=== PATIENT | male | born 1960 | race Hispanic/Latino ===

== ENCOUNTER 2018-05-23 01:16 | Inpatient (IN) | payer OTHER ==
[~2018-05-23] VITALS: Ht 160 cm; Wt 82.5 kg
[2018-05-23 02:03] LABS: CREATININE 1.6 mg/dL (0.5-1.5); POTASSIUM 3.4 mmol/L (3.5-5.1)
[2018-05-23] MEDS ORDERED: LEVOFLOXACIN 500 MG/D5W 100 ML 100 ML ONE (02:12)
[2018-05-23] MEDS ORDERED: CEFTRIAXONE SODIUM 1 GM ONE (02:12)
[2018-05-23] MEDS ORDERED: SODIUM CHLORIDE 0.9% 1000ML 1,000 ML IV ONE ×2 (02:12→03:53)
[2018-05-23] MEDS ORDERED: ACETAMINOPHEN 650 MG SUPPOSITORY RC ONE (02:12)
[2018-05-23 02:18] LABS: INR 1.26 (0.85-1.15); PARTIAL THROMBOPLASTIN TIME 25.4 SEC (26.3-35.5); PROTHROMBIN TIME 13.2 SEC (9.6-11.6)
[2018-05-23 02:21] LABS: BASOPHILS % (AUTO) 0.3 % (0.0-5.0); EOSINOPHILS % (AUTO) 0.4 % (0.0-8.0); HEMATOCRIT 33.2 % (42-54); LYMPHOCYTES % (AUTO) 1.8 % (21.0-51.0); MEAN CORPUSCULAR HEMOGLOBIN 26.5 pg (27.0-33.0); MEAN CORPUSCULAR HGB CONC 32.5 g/dL (32.0-36.0); MEAN CORPUSCULAR VOLUME 81.5 fL (79-99); MONOCYTES % (AUTO) 0.2 % (3.0-13.0); NEUTROPHILS % (AUTO) 97.3 % (40.0-77.0); NUCLEATED RED BLOOD CELLS 0.1 % (0.0-0.19); PLATELET COUNT (AUTO) 306 K/uL (130-400); RED BLOOD CELL COUNT(AUTO) 4.08 MIL/uL (4.50-6.20); RED CELL DISTRIBUTION WIDTH 15.6 % (11.0-15.5); WHITE BLOOD COUNT (AUTO) 8.4 K/uL (4.8-10.8)
[2018-05-23 02:21] LABS: APPEARANCE,URINE Turbid (CLEAR); BILIRUBIN,URINE Moderate (NEGATIVE); COLOR,URINE Red (YELLOW); GLUCOSE, URINE (UA) Negative (NEGATIVE); KETONES,URINE 15 mg/dL (NEGATIVE); LEUKOCYTE ESTERASE ,URINE Large (NEGATIVE); NITRATE,URINE Positive (NEGATIVE); PROTEIN,URINE POS 1+ (NEGATIVE)
[2018-05-23 02:23] LABS: UROBILINOGEN,URINE >8.0 mg/dL (0.2-1.0)
[2018-05-23 02:24] LABS: OCCULT BLOOD,URINE LARGE (NEGATIVE)
[2018-05-23 02:25] LABS: RBC,URINE TNTC /HPF (0-1)
[2018-05-23 02:26] LABS: ALBUMIN 2.9 g/dL (3.5-5.0); BILIRUBIN,TOTAL 0.3 mg/dL (0.2-1.0); CREATINE KINASE MB 3.3 ng/mL (0.5-3.6); TOTAL PROTEIN, SERUM 7.1 g/dL (6.0-8.3)
[2018-05-23 02:27] LABS: TROPONIN I 0.81 ng/mL (0.00-0.06)
[2018-05-23 02:28] LABS: BACTERIA,URINE Moderate /HPF (None Seen); WBC,URINE 26-50 /HPF (0-1)
[2018-05-23 02:36] LABS: ALCOHOL, BLOOD < 3 mg/dL (0-10)
[2018-05-23 02:58] LABS: AMMONIA 36 umol/L (11-32)
[2018-05-23 03:00] LABS: AMPHET/METH SCREEN,URINE NEGATIVE (NEGATIVE); BARBITURATE SCREEN, URINE NEGATIVE (NEGATIVE); BENZODIAZEPINES SCREEN,URINE NEGATIVE (NEGATIVE); CANNABINOID SCREEN,URINE NEGATIVE (NEGATIVE); COCAINE SCREEN,URINE NEGATIVE (NEGATIVE); OPIATE SCREEN,URINE NEGATIVE (NEGATIVE); PHENCYCLIDINE SCREEN,URINE NEGATIVE (NEGATIVE)
[2018-05-23] MEDS ORDERED: NITROGLYCERIN 1GM/1 INCH PACKET TD ONE (05:30)
[2018-05-23 08:06] VITALS: BP 131/82
[2018-05-23 10:13] LABS: BASOPHILS % (AUTO) 0.3 % (0.0-5.0); HEMATOCRIT 30.9 % (42-54); MEAN CORPUSCULAR HEMOGLOBIN 26.6 pg (27.0-33.0); MEAN CORPUSCULAR HGB CONC 32.6 g/dL (32.0-36.0); MEAN CORPUSCULAR VOLUME 81.6 fL (79-99); MONOCYTES % (AUTO) 2.2 % (3.0-13.0); NEUTROPHILS % (AUTO) 95.5 % (40.0-77.0); PLATELET COUNT (AUTO) 331 K/uL (130-400); RED BLOOD CELL COUNT(AUTO) 3.79 MIL/uL (4.50-6.20); RED CELL DISTRIBUTION WIDTH 15.9 % (11.0-15.5)
[2018-05-23 10:26] LABS: ALBUMIN 2.7 g/dL (3.5-5.0); BILIRUBIN,TOTAL 0.4 mg/dL (0.2-1.0); CREATININE 1.7 mg/dL (0.5-1.5); POTASSIUM 4.1 mmol/L (3.5-5.1); TOTAL PROTEIN, SERUM 6.9 g/dL (6.0-8.3)
[2018-05-23] MEDS ORDERED: SODIUM CHLORIDE 0.9% 1000ML 1,000 ML IV SCH ×2 (10:30→10:32)
[2018-05-23] MEDS ORDERED: ACETAMINOPHEN 325 MG TAB PO PRN (10:30)
[2018-05-23] MEDS ORDERED: LEVOFLOXACIN 500 MG/D5W 100 ML 100 ML IV SCH (10:30)
[2018-05-23] MEDS ORDERED: VANCOMYCIN PROTOCOL PER PHARMACY IV SCH (10:30)
[2018-05-23 10:31] LABS: INR 1.34 (0.85-1.15)
[2018-05-23] MEDS ORDERED: VANCOMYCIN 1GM+NS 250ML 250 ML IV ONE ×2 (11:00→14:40)
[2018-05-23] MEDS ORDERED: ZOSYN 3.375GM+NS 50ML 50 ML IV SCH (11:30)
[2018-05-23 11:57] VITALS: BP 131/86
[2018-05-23] MEDS: LACTATED RINGERS 1000ML 1,000 ML IV SCH ×2 (12:30→20:47)
[2018-05-23] MEDS: ZOSYN 3.375GM+NS 50ML 50 ML IV SCH ×2 (12:40→20:48)
[2018-05-23 14:51] VITALS: BP 129/82
[2018-05-23] MEDS ORDERED: ATOR40TA71 PO (16:00)
[2018-05-23] MEDS ORDERED: FLUO-126 PO (16:00)
[2018-05-23] MEDS ORDERED: FAMO20TA8 PO (16:00)
[2018-05-23] MEDS ORDERED: LEVE500T19 PO (16:00)
[2018-05-23] MEDS ORDERED: WARF6TAB49 PO (16:00)
[2018-05-23] MEDS ORDERED: ASPI-1026 PO (16:00)
[2018-05-23] MEDS ORDERED: ALLO300T2 PO (16:00)
[2018-05-23 19:40] LABS: APPEARANCE,URINE TURBID (CLEAR); BILIRUBIN,URINE SMALL (NEGATIVE); COLOR,URINE RED (YELLOW); GLUCOSE, URINE (UA) NEGATIVE (NEGATIVE); KETONES,URINE NEGATIVE (NEGATIVE); LEUKOCYTE ESTERASE ,URINE TRACE (NEGATIVE); NITRATE,URINE POSITIVE (NEGATIVE); OCCULT BLOOD,URINE LARGE (NEGATIVE); PROTEIN,URINE >=300 (NEGATIVE)
[2018-05-23 19:51] LABS: RBC,URINE Full Field /HPF (0-1)
[2018-05-23 19:52] VITALS: BP 152/80
[2018-05-23 19:52] LABS: BACTERIA,URINE Few /HPF (None Seen)
[2018-05-23] MEDS: LEVOFLOXACIN 250 MG/D5W 50ML 50 ML IVPB SCH (20:48)
[2018-05-23 23:50] VITALS: BP 130/79
[2018-05-24] MEDS: VANCOMYCIN 500MG+NS 100ML 100 ML IV SCH ×2 (00:16→12:49)
[2018-05-24 04:00] VITALS: BP 129/63
[2018-05-24] MEDS: ZOSYN 3.375GM+NS 50ML 50 ML IV SCH ×3 (05:14→22:18)
[2018-05-24] MEDS: LACTATED RINGERS 1000ML 1,000 ML IV SCH ×3 (05:14→19:12)
[2018-05-24 08:00] VITALS: BP 119/69
[2018-05-24 11:00] VITALS: BP 116/56
[2018-05-24 11:37] LABS: TROPONIN I 1.65 ng/mL (0.00-0.06)
[2018-05-24] MEDS: PANTOPRAZOLE SODIUM 40 MG TABLET.DR PO SCH (12:48)
[2018-05-24] MEDS: ASPIRIN 81MG TAB.CHEW PO SCH (12:49)
[2018-05-24] MEDS: CARVEDILOL 6.25 MG TABLET PO SCH ×2 (12:49→22:23)
[2018-05-24 16:00] VITALS: BP 133/72
[2018-05-24] MEDS: WARFARIN SODIUM 2 MG TAB PO SCH (18:06)
[2018-05-24 19:40] VITALS: BP 144/71
[2018-05-24] MEDS ORDERED: SODIUM CHLORIDE 0.9% 500ML 500 ML IV ONE (21:56)
[2018-05-24] MEDS: LEVOFLOXACIN 250 MG/D5W 50ML 50 ML IVPB SCH (22:17)
[2018-05-24] MEDS: ATORVASTATIN CALCIUM 40 MG TABLET PO SCH (22:18)
[2018-05-24 23:30] VITALS: BP 116/59
[2018-05-25] MEDS: VANCOMYCIN 500MG+NS 100ML 100 ML IV SCH (02:07)
[2018-05-25 03:30] VITALS: BP 130/67
[2018-05-25 04:09] LABS: BASOPHILS % (AUTO) 0.3 % (0.0-5.0); EOSINOPHILS % (AUTO) 3.9 % (0.0-8.0); HEMATOCRIT 24.1 % (42-54); LYMPHOCYTES % (AUTO) 10.9 % (21.0-51.0); MEAN CORPUSCULAR HGB CONC 33.8 g/dL (32.0-36.0); MEAN CORPUSCULAR VOLUME 79.9 fL (79-99); MONOCYTES % (AUTO) 4.5 % (3.0-13.0); NEUTROPHILS % (AUTO) 80.4 % (40.0-77.0); PLATELET COUNT (AUTO) 204 K/uL (130-400); RED BLOOD CELL COUNT(AUTO) 3.02 MIL/uL (4.50-6.20); RED CELL DISTRIBUTION WIDTH 16.1 % (11.0-15.5); WHITE BLOOD COUNT (AUTO) 11.8 K/uL (4.8-10.8)
[2018-05-25 04:12] LABS: INR 1.28 (0.85-1.15); PROTHROMBIN TIME 13.4 SEC (9.6-11.6)
[2018-05-25 04:26] LABS: ALBUMIN 1.9 g/dL (3.5-5.0); BILIRUBIN,TOTAL 0.4 mg/dL (0.2-1.0); CREATININE 0.8 mg/dL (0.5-1.5); POTASSIUM 3.1 mmol/L (3.5-5.1); TOTAL PROTEIN, SERUM 5.3 g/dL (6.0-8.3)
[2018-05-25] MEDS: ZOSYN 3.375GM+NS 50ML 50 ML IV SCH ×2 (05:32→13:17)
[2018-05-25] MEDS: LACTATED RINGERS 1000ML 1,000 ML IV SCH ×2 (05:33→22:16)
[2018-05-25 08:00] VITALS: BP 110/75
[2018-05-25] MEDS ORDERED: POTASSIUM CHLORIDE 20 MEQ ERTAB PO PRN (09:00)
[2018-05-25] MEDS ORDERED: LIDOCAINE HCL-MPF 1% 2ML VIAL IVP PRN (09:00)
[2018-05-25] MEDS ORDERED: POTASSIUM CHLORIDE 20MEQ/100ML 100 ML IV PRN (09:00)
[2018-05-25] MEDS: CARVEDILOL 6.25 MG TABLET PO SCH ×2 (09:40→22:21)
[2018-05-25] MEDS: ASPIRIN 81MG TAB.CHEW PO SCH (09:40)
[2018-05-25] MEDS: PANTOPRAZOLE SODIUM 40 MG TABLET.DR PO SCH (09:40)
[2018-05-25] MEDS ORDERED: VANCOMYCIN 1GM+NS 250ML 250 ML IV SCH (11:30)
[2018-05-25 11:52] VITALS: BP 116/70
[2018-05-25] MEDS: FERROUS FUMARATE 324 MG TABLET PO SCH ×2 (14:42→22:21)
[2018-05-25] MEDS: DOCUSATE SODIUM 100 MG CAP PO SCH (14:42)
[2018-05-25] MEDS: CEFTAZIDIME PENTAHYDRATE 1 GM/VIAL IVP SCH ×2 (14:42→22:23)
[2018-05-25] MEDS: ENOXAPARIN SODIUM 40 MG/0.4 ML SYRINGE SQ SCH (14:43)
[2018-05-25 16:00] VITALS: BP 112/52
[2018-05-25] MEDS: WARFARIN SODIUM 2 MG TAB PO SCH ×2 (16:00)
[2018-05-25] MEDS ORDERED: WARFARIN SODIUM 5 MG TAB PO SCH (16:00)
[2018-05-25] MEDS ORDERED: WARFARIN SODIUM 5 MG TAB ONE (16:04)
[2018-05-25] MEDS: POTASSIUM CHLORIDE 10% ELIXIR 20 MEQ/15 ML UDCUP PO PRN ×2 (16:46→18:20)
[2018-05-25 19:32] VITALS: BP 118/70
[2018-05-25] MEDS: ATORVASTATIN CALCIUM 40 MG TABLET PO SCH (22:21)
[2018-05-25] MEDS: LISINOPRIL 5 MG TABLET PO SCH (22:22)
[2018-05-25] MEDS: VANCOMYCIN 1GM+NS 250ML 250 ML IV SCH (22:23)
[2018-05-26] VITALS (7 sets, daily range): BP systolic 137–167; BP diastolic 70–96
[2018-05-26 06:20] LABS: HEMATOCRIT 24.6 % (42-54); MEAN CORPUSCULAR HGB CONC 32.3 g/dL (32.0-36.0); MEAN CORPUSCULAR VOLUME 80.7 fL (79-99); PLATELET COUNT (AUTO) 186 K/uL (130-400); RED BLOOD CELL COUNT(AUTO) 3.05 MIL/uL (4.50-6.20); WHITE BLOOD COUNT (AUTO) 6.2 K/uL (4.8-10.8)
[2018-05-26] MEDS: CEFTAZIDIME PENTAHYDRATE 1 GM/VIAL IVP SCH ×3 (06:23→22:28)
[2018-05-26] MEDS: LACTATED RINGERS 1000ML 1,000 ML IV SCH ×3 (06:23→22:32)
[2018-05-26 06:28] LABS: CREATININE 0.8 mg/dL (0.5-1.5); POTASSIUM 3.6 mmol/L (3.5-5.1)
[2018-05-26 06:36] LABS: INR 1.31 (0.85-1.15); PROTHROMBIN TIME 13.7 SEC (9.6-11.6)
[2018-05-26] MEDS: FERROUS FUMARATE 324 MG TABLET PO SCH ×2 (09:43→22:31)
[2018-05-26] MEDS: VANCOMYCIN 1GM+NS 250ML 250 ML IV SCH (09:43)
[2018-05-26] MEDS: DOCUSATE SODIUM 100 MG CAP PO SCH (09:47)
[2018-05-26] MEDS: PANTOPRAZOLE SODIUM 40 MG TABLET.DR PO SCH (09:47)
[2018-05-26] MEDS: ASPIRIN 81MG TAB.CHEW PO SCH (09:47)
[2018-05-26] MEDS: CARVEDILOL 6.25 MG TABLET PO SCH ×2 (09:47→22:32)
[2018-05-26] MEDS: ENOXAPARIN SODIUM 40 MG/0.4 ML SYRINGE SQ SCH (09:57)
[2018-05-26] MEDS: WARFARIN SODIUM 2 MG TAB PO SCH ×2 (16:00→17:00)
[2018-05-26] MEDS ORDERED: WARFARIN SODIUM 2 MG TAB PO SCH (16:00)
[2018-05-26] MEDS ORDERED: VANCOMYCIN 1.5 GM in SODIUM CHLORIDE 0.9% 250 ML IV SCH (22:00)
[2018-05-26] MEDS: ATORVASTATIN CALCIUM 40 MG TABLET PO SCH (22:30)
[2018-05-26] MEDS: LISINOPRIL 5 MG TABLET PO SCH (22:31)
[2018-05-27 03:00] VITALS: BP 161/81
[2018-05-27] MEDS: LACTATED RINGERS 1000ML 1,000 ML IV SCH ×3 (03:18→15:48)
[2018-05-27 04:50] LABS: HEMATOCRIT 25.7 % (42-54); MEAN CORPUSCULAR HEMOGLOBIN 27.1 pg (27.0-33.0); MEAN CORPUSCULAR HGB CONC 33.9 g/dL (32.0-36.0); MEAN CORPUSCULAR VOLUME 79.8 fL (79-99); PLATELET COUNT (AUTO) 246 K/uL (130-400); RED BLOOD CELL COUNT(AUTO) 3.22 MIL/uL (4.50-6.20); RED CELL DISTRIBUTION WIDTH 15.8 % (11.0-15.5); WHITE BLOOD COUNT (AUTO) 6.4 K/uL (4.8-10.8)
[2018-05-27 04:57] LABS: INR 1.28 (0.85-1.15); PROTHROMBIN TIME 13.4 SEC (9.6-11.6)
[2018-05-27] MEDS: CEFTAZIDIME PENTAHYDRATE 1 GM/VIAL IVP SCH ×3 (06:02→21:33)
[2018-05-27 08:00] VITALS: BP 159/88
[2018-05-27] MEDS: FAMOTIDINE 20MG TAB 20 MG TAB PO SCH ×2 (09:33→21:30)
[2018-05-27] MEDS: CARVEDILOL 6.25 MG TABLET PO SCH ×2 (09:33→21:32)
[2018-05-27] MEDS: LEVETIRACETAM 500 MG TABLET PO SCH ×2 (09:33→21:31)
[2018-05-27] MEDS: ASPIRIN 81MG TAB.CHEW PO SCH (09:34)
[2018-05-27] MEDS: FERROUS FUMARATE 324 MG TABLET PO SCH ×2 (09:34→21:31)
[2018-05-27] MEDS: DOCUSATE SODIUM 100 MG CAP PO SCH (09:34)
[2018-05-27] MEDS: PANTOPRAZOLE SODIUM 40 MG TABLET.DR PO SCH (09:34)
[2018-05-27] MEDS: ALLOPURINOL 300 MG TABLET PO SCH (09:34)
[2018-05-27] MEDS: ENOXAPARIN SODIUM 40 MG/0.4 ML SYRINGE SQ SCH (09:35)
[2018-05-27] MEDS: VANCOMYCIN 1GM+NS 250ML 250 ML IV SCH ×2 (09:35→21:28)
[2018-05-27 11:34] VITALS: BP 148/73
[2018-05-27 15:38] VITALS: BP 147/83
[2018-05-27] MEDS: WARFARIN SODIUM 2 MG TAB PO SCH ×2 (16:00→17:14)
[2018-05-27 19:00] VITALS: BP 176/86
[2018-05-27] MEDS: LISINOPRIL 5 MG TABLET PO SCH (21:31)
[2018-05-27] MEDS: FLUOXETINE HCL 20 MG CAPSULE PO SCH (21:31)
[2018-05-27] MEDS: ATORVASTATIN CALCIUM 40 MG TABLET PO SCH (21:31)
[2018-05-27 23:00] VITALS: BP 160/97
[2018-05-28] MEDS: LACTATED RINGERS 1000ML 1,000 ML IV SCH ×3 (02:08→22:10)
[2018-05-28 03:00] VITALS: BP 166/89
[2018-05-28 05:41] LABS: INR 1.28 (0.85-1.15); PROTHROMBIN TIME 13.4 SEC (9.6-11.6)
[2018-05-28] MEDS: CEFTAZIDIME PENTAHYDRATE 1 GM/VIAL IVP SCH ×3 (05:50→22:09)
[2018-05-28 07:52] VITALS: BP 166/94
[2018-05-28] MEDS: VANCOMYCIN 1GM+NS 250ML 250 ML IV SCH ×2 (08:44→20:36)
[2018-05-28] MEDS: FAMOTIDINE 20MG TAB 20 MG TAB PO SCH ×2 (08:46→20:37)
[2018-05-28] MEDS: LEVETIRACETAM 500 MG TABLET PO SCH ×2 (08:46→20:47)
[2018-05-28] MEDS: ASPIRIN 81MG TAB.CHEW PO SCH (08:47)
[2018-05-28] MEDS: FERROUS FUMARATE 324 MG TABLET PO SCH ×2 (08:47→20:37)
[2018-05-28] MEDS: PANTOPRAZOLE SODIUM 40 MG TABLET.DR PO SCH (08:47)
[2018-05-28] MEDS: CARVEDILOL 6.25 MG TABLET PO SCH ×2 (08:47→20:37)
[2018-05-28] MEDS: DOCUSATE SODIUM 100 MG CAP PO SCH (08:47)
[2018-05-28] MEDS: ALLOPURINOL 300 MG TABLET PO SCH (08:52)
[2018-05-28] MEDS: ENOXAPARIN SODIUM 40 MG/0.4 ML SYRINGE SQ SCH (09:00)
[2018-05-28 12:00] VITALS: BP 151/87
[2018-05-28 15:56] VITALS: BP 142/82
[2018-05-28] MEDS: WARFARIN SODIUM 2 MG TAB PO SCH (18:01)
[2018-05-28 20:00] VITALS: BP 142/72
[2018-05-28] MEDS: LISINOPRIL 5 MG TABLET PO SCH (20:36)
[2018-05-28] MEDS: FLUOXETINE HCL 20 MG CAPSULE PO SCH (20:36)
[2018-05-28] MEDS: ATORVASTATIN CALCIUM 40 MG TABLET PO SCH (20:37)
[2018-05-28 23:47] VITALS: BP 135/70
[2018-05-29 03:52] VITALS: BP 124/75
[2018-05-29] MEDS: CEFTAZIDIME PENTAHYDRATE 1 GM/VIAL IVP SCH ×3 (05:26→22:28)
[2018-05-29] MEDS: LACTATED RINGERS 1000ML 1,000 ML IV SCH ×3 (05:26→22:27)
[2018-05-29 06:04] LABS: INR 1.21 (0.85-1.15); PROTHROMBIN TIME 12.7 SEC (9.6-11.6)
[2018-05-29 07:00] VITALS: BP 136/75
[2018-05-29] MEDS: VANCOMYCIN 1GM+NS 250ML 250 ML IV SCH ×2 (09:28→20:18)
[2018-05-29] MEDS: ENOXAPARIN SODIUM 40 MG/0.4 ML SYRINGE SQ SCH (09:29)
[2018-05-29] MEDS: ALLOPURINOL 300 MG TABLET PO SCH (09:30)
[2018-05-29] MEDS: CARVEDILOL 6.25 MG TABLET PO SCH ×2 (09:30→20:18)
[2018-05-29] MEDS: FAMOTIDINE 20MG TAB 20 MG TAB PO SCH ×2 (09:30→20:17)
[2018-05-29] MEDS: PANTOPRAZOLE SODIUM 40 MG TABLET.DR PO SCH (09:30)
[2018-05-29] MEDS: ASPIRIN 81MG TAB.CHEW PO SCH (09:30)
[2018-05-29] MEDS: LEVETIRACETAM 500 MG TABLET PO SCH ×2 (09:30→20:18)
[2018-05-29] MEDS: FERROUS FUMARATE 324 MG TABLET PO SCH ×2 (09:31→20:17)
[2018-05-29] MEDS: DOCUSATE SODIUM 100 MG CAP PO SCH (09:31)
[2018-05-29 11:00] VITALS: BP 139/78
[2018-05-29 16:00] VITALS: BP 165/90
[2018-05-29] MEDS: WARFARIN SODIUM 2 MG TAB PO SCH (16:13)
[2018-05-29 20:00] VITALS: BP 129/67
[2018-05-29] MEDS: LISINOPRIL 5 MG TABLET PO SCH (20:17)
[2018-05-29] MEDS: ATORVASTATIN CALCIUM 40 MG TABLET PO SCH (20:18)
[2018-05-29] MEDS: FLUOXETINE HCL 20 MG CAPSULE PO SCH (20:18)
[2018-05-30] VITALS: BP 139/68
[2018-05-30] MEDS: LACTATED RINGERS 1000ML 1,000 ML IV SCH ×3 (01:47→21:13)
[2018-05-30 04:00] VITALS: BP 154/78
[2018-05-30 05:30] LABS: INR 1.15 (0.85-1.15)
[2018-05-30] MEDS: CEFTAZIDIME PENTAHYDRATE 1 GM/VIAL IVP SCH ×3 (05:41→21:13)
[2018-05-30 08:00] VITALS: BP 137/71
[2018-05-30] MEDS: FAMOTIDINE 20MG TAB 20 MG TAB PO SCH ×2 (10:06→21:09)
[2018-05-30] MEDS: ALLOPURINOL 300 MG TABLET PO SCH (10:10)
[2018-05-30] MEDS: LEVETIRACETAM 500 MG TABLET PO SCH ×2 (10:10→21:08)
[2018-05-30] MEDS: PANTOPRAZOLE SODIUM 40 MG TABLET.DR PO SCH (10:10)
[2018-05-30] MEDS: CARVEDILOL 6.25 MG TABLET PO SCH ×2 (10:10→21:08)
[2018-05-30] MEDS: FERROUS FUMARATE 324 MG TABLET PO SCH ×2 (10:10→21:08)
[2018-05-30] MEDS: ASPIRIN 81MG TAB.CHEW PO SCH (10:10)
[2018-05-30] MEDS: DOCUSATE SODIUM 100 MG CAP PO SCH (10:10)
[2018-05-30] MEDS: VANCOMYCIN 1GM+NS 250ML 250 ML IV SCH ×2 (10:12→21:08)
[2018-05-30] MEDS: ZINC OXIDE OINT 30GM TUBE TP SCH (10:21)
[2018-05-30] MEDS: ENOXAPARIN SODIUM 40 MG/0.4 ML SYRINGE SQ SCH (10:24)
[2018-05-30 12:17] VITALS: BP 136/75
[2018-05-30 16:00] VITALS: BP 134/75
[2018-05-30] MEDS: WARFARIN SODIUM 2 MG TAB PO SCH (16:55)
[2018-05-30 20:00] VITALS: BP 142/74
[2018-05-30] MEDS: ATORVASTATIN CALCIUM 40 MG TABLET PO SCH (21:08)
[2018-05-30] MEDS: LISINOPRIL 5 MG TABLET PO SCH (21:08)
[2018-05-30] MEDS: FLUOXETINE HCL 20 MG CAPSULE PO SCH (21:09)
[2018-05-31] VITALS (7 sets, daily range): BP systolic 102–153; BP diastolic 51–75
[2018-05-31 04:30] LABS: INR 1.13 (0.85-1.15); PROTHROMBIN TIME 11.8 SEC (9.6-11.6)
[2018-05-31] MEDS: CEFTAZIDIME PENTAHYDRATE 1 GM/VIAL IVP SCH ×3 (05:39→21:28)
[2018-05-31] MEDS: VANCOMYCIN 1GM+NS 250ML 250 ML IV SCH ×2 (09:55→21:29)
[2018-05-31] MEDS: PANTOPRAZOLE SODIUM 40 MG TABLET.DR PO SCH ×2 (10:45→10:54)
[2018-05-31] MEDS: ALLOPURINOL 300 MG TABLET PO SCH ×2 (10:45→10:54)
[2018-05-31] MEDS: FAMOTIDINE 20MG TAB 20 MG TAB PO SCH ×2 (10:45→21:29)
[2018-05-31] MEDS: CARVEDILOL 6.25 MG TABLET PO SCH ×2 (10:52→21:39)
[2018-05-31] MEDS: LEVETIRACETAM 500 MG TABLET PO SCH ×2 (10:54→21:29)
[2018-05-31] MEDS: ASPIRIN 81MG TAB.CHEW PO SCH (10:55)
[2018-05-31] MEDS: DOCUSATE SODIUM 100 MG CAP PO SCH (10:55)
[2018-05-31] MEDS: FERROUS FUMARATE 324 MG TABLET PO SCH ×2 (10:56→21:29)
[2018-05-31 11:04] LABS: BASOPHILS % (AUTO) 4.9 % (0.0-5.0); HEMATOCRIT 26.5 % (42-54); LYMPHOCYTES % (AUTO) 23.8 % (21.0-51.0); MEAN CORPUSCULAR HEMOGLOBIN 26.8 pg (27.0-33.0); MEAN CORPUSCULAR HGB CONC 33.6 g/dL (32.0-36.0); MEAN CORPUSCULAR VOLUME 79.7 fL (79-99); MONOCYTES % (AUTO) 6.5 % (3.0-13.0); NEUTROPHILS % (AUTO) 57.8 % (40.0-77.0); NUCLEATED RED BLOOD CELLS 0.1 % (0.0-0.19); PLATELET COUNT (AUTO) 284 K/uL (130-400); RED BLOOD CELL COUNT(AUTO) 3.32 MIL/uL (4.50-6.20); RED CELL DISTRIBUTION WIDTH 15.9 % (11.0-15.5); WHITE BLOOD COUNT (AUTO) 6.6 K/uL (4.8-10.8)
[2018-05-31] MEDS: ENOXAPARIN SODIUM 40 MG/0.4 ML SYRINGE SQ SCH (11:13)
[2018-05-31 11:15] LABS: ALBUMIN 2.2 g/dL (3.5-5.0); BILIRUBIN,TOTAL 0.2 mg/dL (0.2-1.0); CREATININE 0.9 mg/dL (0.5-1.5); POTASSIUM 3.7 mmol/L (3.5-5.1); TOTAL PROTEIN, SERUM 6.3 g/dL (6.0-8.3)
[2018-05-31] MEDS: LACTATED RINGERS 1000ML 1,000 ML IV SCH (13:18)
[2018-05-31] MEDS: ZINC OXIDE OINT 30GM TUBE TP SCH (15:21)
[2018-05-31] MEDS ORDERED: WARFARIN SODIUM 7.5 MG TAB PO ONE (19:00)
[2018-05-31] MEDS: ATORVASTATIN CALCIUM 40 MG TABLET PO SCH (21:29)
[2018-05-31] MEDS: FLUOXETINE HCL 20 MG CAPSULE PO SCH (21:29)
[2018-05-31] MEDS: LISINOPRIL 5 MG TABLET PO SCH (21:29)
[2018-06-01 02:55] VITALS: BP 107/58
[2018-06-01] MEDS: CEFTAZIDIME PENTAHYDRATE 1 GM/VIAL IVP SCH ×3 (05:18→22:46)
[2018-06-01] MEDS: LACTATED RINGERS 1000ML 1,000 ML IV SCH ×2 (05:23→18:35)
[2018-06-01 05:36] LABS: INR 1.09 (0.85-1.15); PARTIAL THROMBOPLASTIN TIME 41.1 SEC (26.3-35.5); PROTHROMBIN TIME 11.4 SEC (9.6-11.6)
[2018-06-01 07:59] VITALS: BP 140/84
[2018-06-01] MEDS: ENOXAPARIN SODIUM 40 MG/0.4 ML SYRINGE SQ SCH (09:06)
[2018-06-01] MEDS: FAMOTIDINE 20MG TAB 20 MG TAB PO SCH ×2 (09:07→21:16)
[2018-06-01] MEDS: DOCUSATE SODIUM 100 MG CAP PO SCH (09:07)
[2018-06-01] MEDS: LEVETIRACETAM 500 MG TABLET PO SCH ×2 (09:07→21:18)
[2018-06-01] MEDS: FERROUS FUMARATE 324 MG TABLET PO SCH ×2 (09:07→21:18)
[2018-06-01] MEDS: ASPIRIN 81MG TAB.CHEW PO SCH (09:07)
[2018-06-01] MEDS: ALLOPURINOL 300 MG TABLET PO SCH (09:08)
[2018-06-01] MEDS: CARVEDILOL 6.25 MG TABLET PO SCH ×2 (09:09→21:17)
[2018-06-01] MEDS: ZINC OXIDE OINT 30GM TUBE TP SCH (09:11)
[2018-06-01] MEDS ORDERED: COMPOUND IV REFRIGERATED 1 EACH IVSOLN MISC PRN (10:00)
[2018-06-01 11:09] VITALS: BP 127/62
[2018-06-01] MEDS: VANCOMYCIN 1.25 GM in SODIUM CHLORIDE 0.9% 250 ML IV SCH ×2 (11:32→21:15)
[2018-06-01 15:41] VITALS: BP 140/75
[2018-06-01 20:00] VITALS: BP 115/59
[2018-06-01] MEDS ORDERED: WARFARIN SODIUM 7.5 MG TAB PO SCH (20:00)
[2018-06-01] MEDS: ATORVASTATIN CALCIUM 40 MG TABLET PO SCH (21:16)
[2018-06-01] MEDS: LISINOPRIL 5 MG TABLET PO SCH (21:16)
[2018-06-01] MEDS: FLUOXETINE HCL 20 MG CAPSULE PO SCH (21:17)
[2018-06-01] MEDS: WARFARIN SODIUM 7.5 MG TAB PO SCH (21:18)
[2018-06-01 23:00] VITALS: BP 119/43
[2018-06-02 03:00] VITALS: BP 134/51
[2018-06-02 06:04] LABS: INR 1.11 (0.85-1.15); PARTIAL THROMBOPLASTIN TIME 40.9 SEC (26.3-35.5); PROTHROMBIN TIME 11.6 SEC (9.6-11.6)
[2018-06-02] MEDS: CEFTAZIDIME PENTAHYDRATE 1 GM/VIAL IVP SCH ×3 (06:21→22:12)
[2018-06-02 08:00] VITALS: BP 139/65
[2018-06-02] MEDS: FERROUS FUMARATE 324 MG TABLET PO SCH ×2 (09:41→21:14)
[2018-06-02] MEDS: DOCUSATE SODIUM 100 MG CAP PO SCH (09:41)
[2018-06-02] MEDS: FAMOTIDINE 20MG TAB 20 MG TAB PO SCH ×2 (09:41→21:13)
[2018-06-02] MEDS: LEVETIRACETAM 500 MG TABLET PO SCH ×2 (09:41→21:14)
[2018-06-02] MEDS: PANTOPRAZOLE SODIUM 40 MG TABLET.DR PO SCH (09:41)
[2018-06-02] MEDS: ALLOPURINOL 300 MG TABLET PO SCH (09:41)
[2018-06-02] MEDS: CARVEDILOL 6.25 MG TABLET PO SCH ×2 (09:42→21:00)
[2018-06-02] MEDS: ASPIRIN 81MG TAB.CHEW PO SCH (09:42)
[2018-06-02] MEDS: ENOXAPARIN SODIUM 40 MG/0.4 ML SYRINGE SQ SCH (09:49)
[2018-06-02] MEDS: VANCOMYCIN 1.25 GM in SODIUM CHLORIDE 0.9% 250 ML IV SCH ×2 (10:50→22:00)
[2018-06-02 11:00] VITALS: BP 132/68
[2018-06-02] MEDS: ZINC OXIDE OINT 30GM TUBE TP SCH (11:57)
[2018-06-02 16:00] VITALS: BP 130/71
[2018-06-02] MEDS: LACTATED RINGERS 1000ML 1,000 ML IV SCH ×2 (16:01→16:04)
[2018-06-02] MEDS: WARFARIN SODIUM 7.5 MG TAB PO SCH (16:02)
[2018-06-02 20:00] VITALS: BP 148/76
[2018-06-02] MEDS: LISINOPRIL 5 MG TABLET PO SCH (21:14)
[2018-06-02] MEDS: FLUOXETINE HCL 20 MG CAPSULE PO SCH (21:14)
[2018-06-02] MEDS: ATORVASTATIN CALCIUM 40 MG TABLET PO SCH (21:14)
[2018-06-03] VITALS: BP 125/65
[2018-06-03] MEDS: LACTATED RINGERS 1000ML 1,000 ML IV SCH ×2 (02:46→17:22)
[2018-06-03 04:00] VITALS: BP 130/64
[2018-06-03 05:32] LABS: INR 1.15 (0.85-1.15); PARTIAL THROMBOPLASTIN TIME 41.5 SEC (26.3-35.5)
[2018-06-03] MEDS: CEFTAZIDIME PENTAHYDRATE 1 GM/VIAL IVP SCH ×3 (05:55→22:04)
[2018-06-03 08:00] VITALS: BP 132/71
[2018-06-03] MEDS: ZINC OXIDE OINT 30GM TUBE TP SCH (09:00)
[2018-06-03] MEDS ORDERED: LACTULOSE 20 GM/30 ML UDCUP PO PRN (09:15)
[2018-06-03] MEDS ORDERED: WARFARIN SODIUM 10 MG TABLET PO SCH (09:15)
[2018-06-03] MEDS: ENOXAPARIN SODIUM 40 MG/0.4 ML SYRINGE SQ SCH (10:46)
[2018-06-03] MEDS: DOCUSATE SODIUM 100 MG CAP PO SCH (10:47)
[2018-06-03] MEDS: ASPIRIN 81MG TAB.CHEW PO SCH (10:47)
[2018-06-03] MEDS: LEVETIRACETAM 500 MG TABLET PO SCH ×2 (10:47→21:08)
[2018-06-03] MEDS: FERROUS FUMARATE 324 MG TABLET PO SCH ×2 (10:47→21:10)
[2018-06-03] MEDS: VANCOMYCIN 1.25 GM in SODIUM CHLORIDE 0.9% 250 ML IV SCH (10:47)
[2018-06-03] MEDS: CARVEDILOL 6.25 MG TABLET PO SCH ×2 (10:48→21:10)
[2018-06-03] MEDS: FAMOTIDINE 20MG TAB 20 MG TAB PO SCH ×2 (10:48→21:08)
[2018-06-03] MEDS: ALLOPURINOL 300 MG TABLET PO SCH (10:48)
[2018-06-03] MEDS: PANTOPRAZOLE SODIUM 40 MG TABLET.DR PO SCH (10:48)
[2018-06-03 13:15] VITALS: BP 133/81
[2018-06-03 16:00] VITALS: BP 132/73
[2018-06-03] MEDS: WARFARIN SODIUM 7.5 MG TAB PO SCH (16:00)
[2018-06-03 20:00] VITALS: BP 127/60
[2018-06-03] MEDS: FLUOXETINE HCL 20 MG CAPSULE PO SCH (21:08)
[2018-06-03] MEDS: ATORVASTATIN CALCIUM 40 MG TABLET PO SCH (21:08)
[2018-06-03] MEDS: LISINOPRIL 5 MG TABLET PO SCH (21:09)
[2018-06-04 00:45] VITALS: BP 146/76
[2018-06-04 04:00] VITALS: BP 150/73
[2018-06-04] MEDS: LACTATED RINGERS 1000ML 1,000 ML IV SCH ×2 (05:21→20:56)
[2018-06-04] MEDS: CEFTAZIDIME PENTAHYDRATE 1 GM/VIAL IVP SCH ×3 (05:37→22:35)
[2018-06-04 05:59] LABS: INR 1.16 (0.85-1.15); PARTIAL THROMBOPLASTIN TIME 39.2 SEC (26.3-35.5); PROTHROMBIN TIME 12.1 SEC (9.6-11.6)
[2018-06-04 07:25] LABS: POTASSIUM 4.2 mmol/L (3.5-5.1)
[2018-06-04 07:30] VITALS: BP 139/69
[2018-06-04] MEDS ORDERED: VANCOMYCIN 1.5 GM in SODIUM CHLORIDE 0.9% 250 ML IV ONE (08:00)
[2018-06-04] MEDS: ALLOPURINOL 300 MG TABLET PO SCH (09:17)
[2018-06-04] MEDS: PANTOPRAZOLE SODIUM 40 MG TABLET.DR PO SCH (09:17)
[2018-06-04] MEDS: LEVETIRACETAM 500 MG TABLET PO SCH ×2 (09:17→20:48)
[2018-06-04] MEDS: CARVEDILOL 6.25 MG TABLET PO SCH ×2 (09:17→20:48)
[2018-06-04] MEDS: DOCUSATE SODIUM 100 MG CAP PO SCH (09:18)
[2018-06-04] MEDS: FERROUS FUMARATE 324 MG TABLET PO SCH ×2 (09:18→20:55)
[2018-06-04] MEDS: ASPIRIN 81MG TAB.CHEW PO SCH (09:18)
[2018-06-04] MEDS: FAMOTIDINE 20MG TAB 20 MG TAB PO SCH ×2 (09:18→20:48)
[2018-06-04] MEDS: ENOXAPARIN SODIUM 40 MG/0.4 ML SYRINGE SQ SCH (09:23)
[2018-06-04] MEDS: ZINC OXIDE OINT 30GM TUBE TP SCH (09:24)
[2018-06-04 11:00] VITALS: BP 129/77
[2018-06-04] MEDS: WARFARIN SODIUM 7.5 MG TAB PO SCH (11:02)
[2018-06-04] MEDS ORDERED: WARFARIN SODIUM 10 MG TABLET PO ONE (12:15)
[2018-06-04 16:00] VITALS: BP 142/61
[2018-06-04] MEDS ORDERED: WARFARIN SODIUM 10 MG TABLET ONE (17:26)
[2018-06-04 20:00] VITALS: BP 132/65
[2018-06-04] MEDS: VANCOMYCIN 1GM+NS 250ML 250 ML IV SCH (20:21)
[2018-06-04] MEDS: FLUOXETINE HCL 20 MG CAPSULE PO SCH (20:46)
[2018-06-04] MEDS: ATORVASTATIN CALCIUM 40 MG TABLET PO SCH (20:48)
[2018-06-04] MEDS: LISINOPRIL 5 MG TABLET PO SCH (20:48)
[2018-06-05] VITALS (8 sets, daily range): BP systolic 120–158; BP diastolic 59–98
[2018-06-05] MEDS: CEFTAZIDIME PENTAHYDRATE 1 GM/VIAL IVP SCH ×3 (05:36→22:21)
[2018-06-05 05:59] LABS: ALBUMIN 2.3 g/dL (3.5-5.0); BILIRUBIN,TOTAL 0.3 mg/dL (0.2-1.0); INR 1.18 (0.85-1.15); PARTIAL THROMBOPLASTIN TIME 37.8 SEC (26.3-35.5); PROTHROMBIN TIME 12.4 SEC (9.6-11.6); TOTAL PROTEIN, SERUM 6.2 g/dL (6.0-8.3)
[2018-06-05] MEDS: VANCOMYCIN 1GM+NS 250ML 250 ML IV SCH ×2 (09:23→22:21)
[2018-06-05] MEDS: ASPIRIN 81MG TAB.CHEW PO SCH (09:26)
[2018-06-05] MEDS: LEVETIRACETAM 500 MG TABLET PO SCH ×2 (09:26→22:22)
[2018-06-05] MEDS: FAMOTIDINE 20MG TAB 20 MG TAB PO SCH ×2 (09:26→22:21)
[2018-06-05] MEDS: ALLOPURINOL 300 MG TABLET PO SCH (09:27)
[2018-06-05] MEDS: CARVEDILOL 6.25 MG TABLET PO SCH ×2 (09:27→22:29)
[2018-06-05] MEDS: FERROUS FUMARATE 324 MG TABLET PO SCH ×2 (09:27→22:23)
[2018-06-05] MEDS: PANTOPRAZOLE SODIUM 40 MG TABLET.DR PO SCH (09:27)
[2018-06-05] MEDS: DOCUSATE SODIUM 100 MG CAP PO SCH (09:27)
[2018-06-05] MEDS: ENOXAPARIN SODIUM 40 MG/0.4 ML SYRINGE SQ SCH (09:31)
[2018-06-05] MEDS: ZINC OXIDE OINT 30GM TUBE TP SCH (09:32)
[2018-06-05 10:30] LABS: BASOPHILS % (AUTO) 1.4 % (0.0-5.0); EOSINOPHILS % (AUTO) 8.1 % (0.0-8.0); HEMATOCRIT 25.9 % (42-54); LYMPHOCYTES % (AUTO) 24.8 % (21.0-51.0); MEAN CORPUSCULAR HEMOGLOBIN 26.7 pg (27.0-33.0); MEAN CORPUSCULAR HGB CONC 33.6 g/dL (32.0-36.0); MEAN CORPUSCULAR VOLUME 79.5 fL (79-99); NEUTROPHILS % (AUTO) 59.7 % (40.0-77.0); PLATELET COUNT (AUTO) 312 K/uL (130-400); RED BLOOD CELL COUNT(AUTO) 3.26 MIL/uL (4.50-6.20); RED CELL DISTRIBUTION WIDTH 15.9 % (11.0-15.5); WHITE BLOOD COUNT (AUTO) 5.2 K/uL (4.8-10.8)
[2018-06-05] MEDS: LACTATED RINGERS 1000ML 1,000 ML IV SCH (12:18)
[2018-06-05] MEDS: WARFARIN SODIUM 7.5 MG TAB PO SCH (17:20)
[2018-06-05] MEDS: ATORVASTATIN CALCIUM 40 MG TABLET PO SCH (22:21)
[2018-06-05] MEDS: FLUOXETINE HCL 20 MG CAPSULE PO SCH (22:22)
[2018-06-05] MEDS: LISINOPRIL 5 MG TABLET PO SCH (22:23)
[2018-06-06 03:13] VITALS: BP 135/78
[2018-06-06] MEDS: LACTATED RINGERS 1000ML 1,000 ML IV SCH ×2 (03:18→14:56)
[2018-06-06 05:21] LABS: INR 1.2 (0.85-1.15); PROTHROMBIN TIME 12.6 SEC (9.6-11.6)
[2018-06-06] MEDS: CEFTAZIDIME PENTAHYDRATE 1 GM/VIAL IVP SCH ×3 (07:19→23:38)
[2018-06-06 08:13] VITALS: BP 126/76
[2018-06-06] MEDS: LEVETIRACETAM 500 MG TABLET PO SCH ×2 (08:38→21:05)
[2018-06-06] MEDS: PANTOPRAZOLE SODIUM 40 MG TABLET.DR PO SCH (08:38)
[2018-06-06] MEDS: ASPIRIN 81MG TAB.CHEW PO SCH (08:38)
[2018-06-06] MEDS: ALLOPURINOL 300 MG TABLET PO SCH (08:39)
[2018-06-06] MEDS: DOCUSATE SODIUM 100 MG CAP PO SCH (08:39)
[2018-06-06] MEDS: FAMOTIDINE 20MG TAB 20 MG TAB PO SCH ×2 (08:39→21:05)
[2018-06-06] MEDS: CARVEDILOL 6.25 MG TABLET PO SCH ×2 (08:39→21:08)
[2018-06-06] MEDS: ENOXAPARIN SODIUM 40 MG/0.4 ML SYRINGE SQ SCH (08:40)
[2018-06-06] MEDS: VANCOMYCIN 1GM+NS 250ML 250 ML IV SCH ×2 (08:45→21:04)
[2018-06-06 11:24] VITALS: BP 121/62
[2018-06-06] MEDS: FERROUS FUMARATE 324 MG TABLET PO SCH ×2 (14:59→21:05)
[2018-06-06 16:32] VITALS: BP 123/73
[2018-06-06] MEDS: ZINC OXIDE OINT 30GM TUBE TP SCH (16:39)
[2018-06-06] MEDS: WARFARIN SODIUM 7.5 MG TAB PO SCH (16:40)
[2018-06-06 20:07] VITALS: BP 152/78
[2018-06-06] MEDS: LISINOPRIL 5 MG TABLET PO SCH (21:04)
[2018-06-06] MEDS: ATORVASTATIN CALCIUM 40 MG TABLET PO SCH (21:04)
[2018-06-06] MEDS: FLUOXETINE HCL 20 MG CAPSULE PO SCH (21:05)
[2018-06-07 00:06] VITALS: BP 145/81
[2018-06-07 03:38] VITALS: BP 128/72
[2018-06-07 05:40] LABS: INR 1.15 (0.85-1.15); PARTIAL THROMBOPLASTIN TIME 37.1 SEC (26.3-35.5)
[2018-06-07] MEDS: CEFTAZIDIME PENTAHYDRATE 1 GM/VIAL IVP SCH ×3 (06:50→23:37)
[2018-06-07 08:00] VITALS: BP 142/69
[2018-06-07] MEDS: LEVETIRACETAM 500 MG TABLET PO SCH ×2 (09:10→21:33)
[2018-06-07] MEDS: FERROUS FUMARATE 324 MG TABLET PO SCH ×2 (09:10→21:32)
[2018-06-07] MEDS: FAMOTIDINE 20MG TAB 20 MG TAB PO SCH ×2 (09:10→21:33)
[2018-06-07] MEDS: ALLOPURINOL 300 MG TABLET PO SCH (09:10)
[2018-06-07] MEDS: DOCUSATE SODIUM 100 MG CAP PO SCH (09:12)
[2018-06-07] MEDS: VANCOMYCIN 1GM+NS 250ML 250 ML IV SCH ×2 (09:12→21:30)
[2018-06-07] MEDS: ASPIRIN 81MG TAB.CHEW PO SCH (09:12)
[2018-06-07] MEDS: ENOXAPARIN SODIUM 40 MG/0.4 ML SYRINGE SQ SCH (09:13)
[2018-06-07] MEDS: ZINC OXIDE OINT 30GM TUBE TP SCH (09:14)
[2018-06-07] MEDS: PANTOPRAZOLE SODIUM 40 MG TABLET.DR PO SCH (09:16)
[2018-06-07] MEDS: CARVEDILOL 6.25 MG TABLET PO SCH ×2 (09:35→21:32)
[2018-06-07 11:44] VITALS: BP 138/70
[2018-06-07 16:00] VITALS: BP 130/71
[2018-06-07] MEDS: WARFARIN SODIUM 7.5 MG TAB PO SCH (16:20)
[2018-06-07 19:20] VITALS: BP 132/74
[2018-06-07] MEDS: FLUOXETINE HCL 20 MG CAPSULE PO SCH (21:32)
[2018-06-07] MEDS: ATORVASTATIN CALCIUM 40 MG TABLET PO SCH (21:33)
[2018-06-07] MEDS: LISINOPRIL 5 MG TABLET PO SCH (21:33)
[2018-06-07] MEDS: LACTATED RINGERS 1000ML 1,000 ML IV SCH (21:45)
[2018-06-08 00:07] VITALS: BP 150/67
[2018-06-08] MEDS ORDERED: FUROSEMIDE 10 MG/ML 2ML VIAL IV STA ×2 (05:13→05:33)
[2018-06-08] MEDS ORDERED: FUROSEMIDE 10 MG/ML 4ML VIAL ONE (05:14)
[2018-06-08 05:16] LABS: ABG BASE EXCESS -3.9 mmol/L (-2.0-3.0); ABG OXYGEN SATURATION 94.7 % (95.0-99.0); ABG PCO2 64 mmHg (35-48)
[2018-06-08] MEDS ORDERED: IPRATROPIUM/ALBUTEROL SULFATE 3 ML SOLUTION IH STA (05:17)
[2018-06-08] MEDS ORDERED: IPRATROPIUM/ALBUTEROL SULFATE 3 ML SOLUTION IH ONE (05:18)
[2018-06-08] MEDS: LACTATED RINGERS 1000ML 1,000 ML IV SCH (05:24)
[2018-06-08 05:27] LABS: INR 1.1 (0.85-1.15); PARTIAL THROMBOPLASTIN TIME 37.3 SEC (26.3-35.5); PROTHROMBIN TIME 11.5 SEC (9.6-11.6)
[2018-06-08 05:38] LABS: BASOPHILS % (AUTO) 1.3 % (0.0-5.0); CREATININE 1.2 mg/dL (0.5-1.5); EOSINOPHILS % (AUTO) 4.3 % (0.0-8.0); LYMPHOCYTES % (AUTO) 37.2 % (21.0-51.0); MEAN CORPUSCULAR HEMOGLOBIN 25.7 pg (27.0-33.0); MEAN CORPUSCULAR HGB CONC 31.7 g/dL (32.0-36.0); MEAN CORPUSCULAR VOLUME 80.9 fL (79-99); MONOCYTES % (AUTO) 6.2 % (3.0-13.0); PLATELET COUNT (AUTO) 412 K/uL (130-400); POTASSIUM 5.2 mmol/L (3.5-5.1); RED BLOOD CELL COUNT(AUTO) 4.82 MIL/uL (4.50-6.20); RED CELL DISTRIBUTION WIDTH 16.7 % (11.0-15.5)
[2018-06-08] MEDS: CEFTAZIDIME PENTAHYDRATE 1 GM/VIAL IVP SCH ×2 (05:43→14:46)
[2018-06-08 06:13] LABS: B-TYPE NATRIURETIC PEPTIDE 1910 pg/mL (0-100)
[2018-06-08] MEDS ORDERED: LABETALOL HCL 5 MG/ML 20ML VIAL IV ONE (06:49)
[2018-06-08] MEDS ORDERED: LABETALOL HCL 5 MG/ML 20ML VIAL IV SCH (07:00)
[2018-06-08 08:00] VITALS: BP 161/88
[2018-06-08 08:10] LABS: ABG BASE EXCESS 0.7 mmol/L (-2.0-3.0); ABG HCO3 24.4 mmol/L (21.0-28.0); ABG OXYGEN SATURATION 99.4 % (95.0-99.0); ABG PCO2 37 mmHg (35-48)
[2018-06-08] MEDS: FUROSEMIDE 10 MG/ML 4ML VIAL IV SCH ×2 (08:29→20:47)
[2018-06-08] MEDS: VANCOMYCIN 1GM+NS 250ML 250 ML IV SCH ×2 (08:29→20:46)
[2018-06-08] MEDS: ENOXAPARIN SODIUM 40 MG/0.4 ML SYRINGE SQ SCH (08:32)
[2018-06-08] MEDS: ALLOPURINOL 300 MG TABLET PO SCH (09:00)
[2018-06-08] MEDS: FERROUS FUMARATE 324 MG TABLET PO SCH ×2 (09:00→20:50)
[2018-06-08] MEDS: DOCUSATE SODIUM 100 MG CAP PO SCH (09:00)
[2018-06-08] MEDS: CARVEDILOL 6.25 MG TABLET PO SCH ×2 (09:00→20:48)
[2018-06-08] MEDS: ZINC OXIDE OINT 30GM TUBE TP SCH (09:00)
[2018-06-08] MEDS: ASPIRIN 81MG TAB.CHEW PO SCH (09:00)
[2018-06-08] MEDS: FAMOTIDINE 20MG TAB 20 MG TAB PO SCH ×2 (09:00→20:48)
[2018-06-08] MEDS: PANTOPRAZOLE SODIUM 40 MG TABLET.DR PO SCH (09:00)
[2018-06-08] MEDS: LEVETIRACETAM 500 MG TABLET PO SCH ×2 (09:00→20:48)
[2018-06-08 12:00] VITALS: BP 167/99
[2018-06-08] MEDS ORDERED: IOHEXOL 350 MG/ML 100ML INFUS..BTL IV ONE (15:13)
[2018-06-08] MEDS: WARFARIN SODIUM 7.5 MG TAB PO SCH (16:28)
[2018-06-08 17:21] VITALS: BP 128/83
[2018-06-08] MEDS ORDERED: SODIUM CHLORIDE 0.9% 1000ML 1,000 ML IV ONE (18:17)
[2018-06-08] MEDS ORDERED: HEPARIN SODIUM 5000UNIT/ML 1ML VIAL ONE (18:22)
[2018-06-08 19:22] VITALS: BP 124/66
[2018-06-08] MEDS: ATORVASTATIN CALCIUM 40 MG TABLET PO SCH (20:47)
[2018-06-08] MEDS: LISINOPRIL 5 MG TABLET PO SCH (20:47)
[2018-06-08] MEDS: FLUOXETINE HCL 20 MG CAPSULE PO SCH (20:47)
[2018-06-08 22:57] VITALS: BP 121/50
[2018-06-09 03:36] VITALS: BP 138/81
[2018-06-09 04:02] LABS: HEMATOCRIT 26.9 % (42-54); MEAN CORPUSCULAR HEMOGLOBIN 26.9 pg (27.0-33.0); MEAN CORPUSCULAR HGB CONC 33.9 g/dL (32.0-36.0); MEAN CORPUSCULAR VOLUME 79.3 fL (79-99); PLATELET COUNT (AUTO) 284 K/uL (130-400); RED BLOOD CELL COUNT(AUTO) 3.39 MIL/uL (4.50-6.20); RED CELL DISTRIBUTION WIDTH 16.8 % (11.0-15.5); WHITE BLOOD COUNT (AUTO) 4.7 K/uL (4.8-10.8)
[2018-06-09 04:08] LABS: CREATININE 1.2 mg/dL (0.5-1.5); POTASSIUM 3.6 mmol/L (3.5-5.1)
[2018-06-09 04:09] LABS: INR 1.19 (0.85-1.15); PROTHROMBIN TIME 12.5 SEC (9.6-11.6)
[2018-06-09] MEDS: FUROSEMIDE 10 MG/ML 4ML VIAL IV SCH ×3 (06:55→21:38)
[2018-06-09 08:00] VITALS: BP 120/83
[2018-06-09] MEDS: LEVETIRACETAM 500 MG TABLET PO SCH ×2 (08:55→21:38)
[2018-06-09] MEDS: ASPIRIN 81MG TAB.CHEW PO SCH (08:56)
[2018-06-09] MEDS: CARVEDILOL 6.25 MG TABLET PO SCH ×2 (08:56→21:38)
[2018-06-09] MEDS: ALLOPURINOL 300 MG TABLET PO SCH (08:56)
[2018-06-09] MEDS: DOCUSATE SODIUM 100 MG CAP PO SCH (08:57)
[2018-06-09] MEDS: PANTOPRAZOLE SODIUM 40 MG TABLET.DR PO SCH (08:57)
[2018-06-09] MEDS: FAMOTIDINE 20MG TAB 20 MG TAB PO SCH ×2 (08:57→21:38)
[2018-06-09] MEDS: ZINC OXIDE OINT 30GM TUBE TP SCH (09:00)
[2018-06-09] MEDS: VANCOMYCIN 1GM+NS 250ML 250 ML IV SCH (09:03)
[2018-06-09] MEDS: FERROUS FUMARATE 324 MG TABLET PO SCH ×2 (09:13→21:38)
[2018-06-09 12:00] VITALS: BP 133/69
[2018-06-09] MEDS ORDERED: CEFTAZIDIME PENTAHYDRATE 1 GM/VIAL IVP SCH (13:00)
[2018-06-09 16:00] VITALS: BP 143/79
[2018-06-09] MEDS: WARFARIN SODIUM 7.5 MG TAB PO SCH (16:39)
[2018-06-09 19:29] VITALS: BP 135/73
[2018-06-09] MEDS: LISINOPRIL 5 MG TABLET PO SCH (21:37)
[2018-06-09] MEDS: FLUOXETINE HCL 20 MG CAPSULE PO SCH (21:38)
[2018-06-09] MEDS: ATORVASTATIN CALCIUM 40 MG TABLET PO SCH (21:38)
[2018-06-09 23:38] VITALS: BP 121/70
[2018-06-10 03:25] LABS: BASOPHILS % (AUTO) 2.1 % (0.0-5.0); HEMATOCRIT 27.4 % (42-54); LYMPHOCYTES % (AUTO) 27.7 % (21.0-51.0); MEAN CORPUSCULAR HEMOGLOBIN 25.8 pg (27.0-33.0); MEAN CORPUSCULAR HGB CONC 32.5 g/dL (32.0-36.0); MEAN CORPUSCULAR VOLUME 79.2 fL (79-99); MONOCYTES % (AUTO) 13.1 % (3.0-13.0); NEUTROPHILS % (AUTO) 48.1 % (40.0-77.0); PLATELET COUNT (AUTO) 233 K/uL (130-400); RED BLOOD CELL COUNT(AUTO) 3.46 MIL/uL (4.50-6.20); RED CELL DISTRIBUTION WIDTH 16.4 % (11.0-15.5); WHITE BLOOD COUNT (AUTO) 4.3 K/uL (4.8-10.8)
[2018-06-10 03:36] LABS: INR 1.18 (0.85-1.15); PROTHROMBIN TIME 12.3 SEC (9.6-11.6)
[2018-06-10 03:40] LABS: CREATININE 1.2 mg/dL (0.5-1.5); POTASSIUM 3.4 mmol/L (3.5-5.1)
[2018-06-10 04:09] VITALS: BP 135/76
[2018-06-10] MEDS: FUROSEMIDE 10 MG/ML 4ML VIAL IV SCH ×2 (04:58→13:42)
[2018-06-10] MEDS: POTASSIUM CHLORIDE 10% ELIXIR 20 MEQ/15 ML UDCUP PO PRN (04:59)
[2018-06-10 07:00] VITALS: BP 145/77
[2018-06-10] MEDS: FERROUS FUMARATE 324 MG TABLET PO SCH (08:36)
[2018-06-10] MEDS: LEVETIRACETAM 500 MG TABLET PO SCH (08:36)
[2018-06-10] MEDS: FAMOTIDINE 20MG TAB 20 MG TAB PO SCH (08:37)
[2018-06-10] MEDS: PANTOPRAZOLE SODIUM 40 MG TABLET.DR PO SCH (08:37)
[2018-06-10] MEDS: ALLOPURINOL 300 MG TABLET PO SCH (08:37)
[2018-06-10] MEDS: DOCUSATE SODIUM 100 MG CAP PO SCH (08:37)
[2018-06-10] MEDS: ASPIRIN 81MG TAB.CHEW PO SCH (08:37)
[2018-06-10] MEDS: ZINC OXIDE OINT 30GM TUBE TP SCH (08:38)
[2018-06-10] MEDS: CARVEDILOL 6.25 MG TABLET PO SCH (08:38)
[2018-06-10] MEDS ORDERED: WARFARIN SODIUM 5 MG TAB PO SCH (09:00)
[2018-06-10 11:00] VITALS: BP 129/72
[2018-06-10] MEDS ORDERED: DOCU-275 PO (14:33)
[2018-06-10] MEDS ORDERED: ASPI-1005 PO (14:33)
[2018-06-10] MEDS ORDERED: FERR324T10 PO (14:33)
[2018-06-10] MEDS ORDERED: CARV6.2579 PO (14:33)
[2018-06-10] MEDS ORDERED: LISI-617 PO (14:33)
[2018-06-10] MEDS ORDERED: FURO20TA6 PO (15:04)
[2018-06-10 16:00] VITALS: BP 139/85
[2018-06-10] MEDS: WARFARIN SODIUM 7.5 MG TAB PO SCH (17:07)
== END 2018-06-10 19:04 | disposition home or self-care (01) | DRG 871 ==
LOC: EDH 01:16 → EDHIP 01:17 → 3CH 03:55 → EDHIP 06:05 → 3CH 06:13 → 2DH 06-08 06:13
PROVIDERS: ADMIT Hospitalist; ATTEND Hospitalist
PROC: 5A09357 Assistance with Respiratory Ventilation, Less than 24 Consecutive Hours, Continuous Positive Airway Pressure (ICD-10-PCS; principal; 2018-06-08)
DX: A41.50 Gram-negative sepsis, unspecified (principal); I21.9 Acute myocardial infarction, unspecified; I50.23 Acute on chronic systolic (congestive) heart failure; J96.01 Acute respiratory failure with hypoxia; J96.02 Acute respiratory failure with hypercapnia; N39.0 Urinary tract infection, site not specified; I69.351 Hemiplegia and hemiparesis following cerebral infarction affecting right dominant side; N17.9 Acute kidney failure, unspecified; N13.6 Pyonephrosis; A41.02 Sepsis due to Methicillin resistant Staphylococcus aureus; R31.0 Gross hematuria; E78.5 Hyperlipidemia, unspecified; I11.0 Hypertensive heart disease with heart failure; I25.10 Atherosclerotic heart disease of native coronary artery without angina pectoris; I25.5 Ischemic cardiomyopathy; K59.00 Constipation, unspecified; N40.0 Benign prostatic hyperplasia without lower urinary tract symptoms; B96.5 Pseudomonas (aeruginosa) (mallei) (pseudomallei) as the cause of diseases classified elsewhere; I48.91 Unspecified atrial fibrillation; I25.2 Old myocardial infarction; Z74.01 Bed confinement status; Z79.01 Long term (current) use of anticoagulants; Z79.82 Long term (current) use of aspirin; Z79.899 Other long term (current) drug therapy; Z87.440 Personal history of urinary (tract) infections; Z82.49 Family history of ischemic heart disease and other diseases of the circulatory system; Z82.3 Family history of stroke; Z82.0 Family history of epilepsy and other diseases of the nervous system
CPT/HCPCS: 36415; 36600; 71045; 71275; 74176; 80048; 80053; 80202; 80305; 81001; 82140; 82435; 82550; 82553; 82803; 82947; 82948; 83605; 83874; 83880; 84132; 84295; 84484; 85018; 85025; 85027; 85610; 85730; 86140; 87040; 87077; 87088; 87186; 92507; 92522; 92610; 93005; 93306; 94640; 94660; 94760; 97039; 99291; A4218; A4606; G0480; J0696; J0713; J1644; J1650; J1940; J1956; J2543; J3370; J3490; J7030; J7040; J7120; Q2038; Q9967

== ENCOUNTER 2018-09-17 17:58 | Emergency (ER) | payer OTHER ==
[~2018-09-17 17:58] MED LIST: ALLO300T2 PO; ASPI-1005 PO; ATOR40TA71 PO; CARV6.2579 PO; DOCU-275 PO; FAMO20TA8 PO; FERR324T10 PO; FLUO-126 PO; FURO20TA6 PO; LEVE500T19 PO; LISI-617 PO; WARF6TAB49 PO
[2018-09-17 18:59] LABS: BASOPHILS % (AUTO) 0.7 % (0.0-5.0); EOSINOPHILS % (AUTO) 6.1 % (0.0-8.0); HEMATOCRIT 34.3 % (42-54); LYMPHOCYTES % (AUTO) 14.4 % (21.0-51.0); MEAN CORPUSCULAR HEMOGLOBIN 28.6 pg (27.0-33.0); MEAN CORPUSCULAR HGB CONC 34.2 g/dL (32.0-36.0); MEAN CORPUSCULAR VOLUME 83.4 fL (79-99); MONOCYTES % (AUTO) 4.1 % (3.0-13.0); NEUTROPHILS % (AUTO) 74.7 % (40.0-77.0); PLATELET COUNT (AUTO) 216 K/uL (130-400); RED BLOOD CELL COUNT(AUTO) 4.11 MIL/uL (4.50-6.20); RED CELL DISTRIBUTION WIDTH 17.2 % (11.0-15.5); WHITE BLOOD COUNT (AUTO) 8.8 K/uL (4.8-10.8)
[2018-09-17 19:20] LABS: CREATININE 1.4 mg/dL (0.5-1.5); POTASSIUM 4.2 mmol/L (3.5-5.1)
[2018-09-17 19:30] LABS: ALBUMIN 3.6 g/dL (3.5-5.0); BILIRUBIN,TOTAL 0.4 mg/dL (0.2-1.0); TOTAL PROTEIN, SERUM 7.1 g/dL (6.0-8.3)
[2018-09-17] MEDS ORDERED: LORAZEPAM 2 MG/ML 1 ML VIAL ONE (19:39)
[2018-09-17 19:43] LABS: INR 1.78 (0.85-1.15); PARTIAL THROMBOPLASTIN TIME 31.5 SEC (26.3-35.5); PROTHROMBIN TIME 18.5 SEC (9.6-11.6)
== END 2018-09-18 00:49 | disposition home or self-care (01) ==
LOC: EDH 17:58
DX: G40.89 Other seizures (principal); I10 Essential (primary) hypertension; Z86.73 Personal history of transient ischemic attack (TIA), and cerebral infarction without residual deficits; Z79.899 Other long term (current) drug therapy; Z79.01 Long term (current) use of anticoagulants
CPT/HCPCS: 36415; 70450; 71045; 80053; 82550; 83874; 84484; 85025; 85610; 85730; 93005; 96374; 99284; J2060

== ENCOUNTER 2018-11-16 14:54 | Emergency (ER) | payer MEDICAID ==
[2018-11-16] MEDS ORDERED: LORAZEPAM 2 MG/ML 1 ML VIAL ONE (16:01)
[2018-11-16 16:25] LABS: BASOPHILS % (AUTO) 0.7 % (0.0-5.0); EOSINOPHILS % (AUTO) 3.6 % (0.0-8.0); HEMATOCRIT 37.2 % (42-54); LYMPHOCYTES % (AUTO) 12.3 % (21.0-51.0); MEAN CORPUSCULAR HEMOGLOBIN 29.6 pg (27.0-33.0); MEAN CORPUSCULAR HGB CONC 33.8 g/dL (32.0-36.0); MEAN CORPUSCULAR VOLUME 87.6 fL (79-99); MONOCYTES % (AUTO) 3.8 % (3.0-13.0); NEUTROPHILS % (AUTO) 79.6 % (40.0-77.0); PLATELET COUNT (AUTO) 207 K/uL (130-400); RED BLOOD CELL COUNT(AUTO) 4.25 MIL/uL (4.50-6.20); RED CELL DISTRIBUTION WIDTH 14.8 % (11.0-15.5); WHITE BLOOD COUNT (AUTO) 8.7 K/uL (4.8-10.8)
[2018-11-16 16:36] LABS: CREATININE 1.2 mg/dL (0.5-1.5); POTASSIUM 4.6 mmol/L (3.5-5.1)
== END 2018-11-16 20:34 | disposition home or self-care (01) ==
LOC: EDH 14:54
DX: R56.9 Unspecified convulsions (principal); I10 Essential (primary) hypertension; Z86.73 Personal history of transient ischemic attack (TIA), and cerebral infarction without residual deficits
CPT/HCPCS: 36415; 80048; 82542; 85025; 96374; 99283; J2060

== ENCOUNTER 2018-12-07 07:49 | Day surgery (SDC) | payer MEDICAID ==
[2018-12-04 14:39] LABS: EOSINOPHILS % (AUTO) 6.9 % (0.0-8.0); HEMATOCRIT 38.7 % (42-54); LYMPHOCYTES % (AUTO) 26.5 % (21.0-51.0); MEAN CORPUSCULAR HEMOGLOBIN 29.6 pg (27.0-33.0); MEAN CORPUSCULAR HGB CONC 33.5 g/dL (32.0-36.0); MEAN CORPUSCULAR VOLUME 88.3 fL (79-99); MONOCYTES % (AUTO) 4.2 % (3.0-13.0); NEUTROPHILS % (AUTO) 61.4 % (40.0-77.0); PLATELET COUNT (AUTO) 187 K/uL (130-400); RED BLOOD CELL COUNT(AUTO) 4.38 MIL/uL (4.50-6.20); RED CELL DISTRIBUTION WIDTH 14.4 % (11.0-15.5); WHITE BLOOD COUNT (AUTO) 5.7 K/uL (4.8-10.8)
[2018-12-04 14:49] LABS: INR 1.31 (0.85-1.15); PROTHROMBIN TIME 13.7 SEC (9.6-11.6)
[2018-12-04 14:51] VITALS: BP 140/77
[2018-12-04 14:55] LABS: CREATININE 1.1 mg/dL (0.5-1.5); POTASSIUM 4.1 mmol/L (3.5-5.1)
--- NOTE | 2018-12-04 15:15 | NUR ---
NOTE REPORTED EKG TO DR TOLEDO, NO FURTHER ORDERS GIVEN.
[~2018-12-07] VITALS: Ht 185.4 cm; Wt 82.6 kg
[2018-12-07] VITALS (17 sets, daily range): BP systolic 113–156; BP diastolic 68–97
[~2018-12-07 07:49] MED LIST changes: -DOCU-275 PO; -FERR324T10 PO; -FURO20TA6 PO; -LISI-617 PO; +LISI40TA4 PO; +MECL-111 PO; +WARF10TA23 PO; -WARF6TAB49 PO
[2018-12-07] MEDS ORDERED: SODIUM CHLORIDE IV PRN ×2 (08:00)
[2018-12-07] MEDS ORDERED: GENTAMICIN IV PRN ×2 (08:00)
[2018-12-07] MEDS ORDERED: LACTATED RINGERS 1000ML 1,000 ML IV ONE (08:37)
[2018-12-07 09:06] LABS: INR 1.07 (0.85-1.15); PARTIAL THROMBOPLASTIN TIME 27.4 SEC (26.3-35.5); PROTHROMBIN TIME 11.2 SEC (9.6-11.6)
[2018-12-07] MEDS: CEFTRIAXONE SODIUM 1 GM IVP ONE ×2 (09:25→10:35)
[2018-12-07] MEDS ORDERED: FENTANYL CITRATE PF 50 MCG/1 ML 2ML VIAL ONE ×2 (10:16→11:14)
[2018-12-07] MEDS ORDERED: LIDOCAINE PF 2% 5ML ABBOJECT ONE (10:16)
[2018-12-07] MEDS ORDERED: PROPOFOL 10 MG/ML 20ML VIAL IV ONE (10:16)
[2018-12-07] MEDS ORDERED: GLYCOPYRROLATE 1 MG/5 ML SYRINGE ONE (10:51)
[2018-12-07] MEDS ORDERED: EPHEDRINE SULFATE 50 MG/ML AMPULE ONE (10:54)
[2018-12-07 12:21] LABS: APPEARANCE,URINE Clear (CLEAR); BILIRUBIN,URINE Negative (NEGATIVE); COLOR,URINE Yellow (YELLOW); GLUCOSE, URINE (UA) Negative (NEGATIVE); KETONES,URINE Negative (NEGATIVE); LEUKOCYTE ESTERASE ,URINE Negative (NEGATIVE); NITRATE,URINE Negative (NEGATIVE); OCCULT BLOOD,URINE Trace (NEGATIVE); PH,URINE 5.5 (5.0-8.0); PROTEIN,URINE Negative (NEGATIVE); UROBILINOGEN,URINE 0.2 mg/dL (0.2-1.0)
[2018-12-07 13:04] LABS: BACTERIA,URINE Rare /HPF (None Seen); RBC,URINE 0-1 /HPF (0-1); SQUAMOUS EPITHELIAL CELL,UR Rare /HPF (0-2); WBC,URINE None Seen /HPF (0-1)
[2018-12-07] MEDS ORDERED: BACITRACIN 1 EACH PACKET TP ONE (14:38)
--- NOTE | 2018-12-07 15:15 | NUR ---
PT DISCHARGED HOME, TOLERATING FLUIDS WELL. PT DENIES ANY SEVERE PAIN, NAUSEA, OR DIZZINESS. PT'S CBI DISCONTINUED PRIOR TO LEAVING, PT'S TURCIOS CHANGED TO LEG BAG, PT AND BROTHER INSTRUCTED IN CATHETER CARE INCLUDING HOW TO CHANGE BETWEEN THE LEG BAG AND TURCIOS. URINE REMAINS CLEAR AND RED TINTED, BUT NO CLOTS NOTED. PT AND BROTHER INSTRUCTED TO NOTIFY DR. LUNSFORD IF URINE BECAME CLOUDY, DARK RED, OR CLOTS APPEARED. BACITRACIN SUPPLIED TO PT. PT AND BROTHER REPORT NO FURTHER QUESTIONS AT THIS TIME.
== END 2018-12-07 15:15 | disposition home or self-care (01) ==
LOC: DAH 07:49
PROVIDERS: ATTEND Urology
DX: N40.1 Benign prostatic hyperplasia with lower urinary tract symptoms (principal); R33.8 Other retention of urine; Z98.890 Other specified postprocedural states; Z79.899 Other long term (current) drug therapy; I10 Essential (primary) hypertension; Z86.73 Personal history of transient ischemic attack (TIA), and cerebral infarction without residual deficits; R56.9 Unspecified convulsions; Z79.01 Long term (current) use of anticoagulants
CPT/HCPCS: 36415 ×2; 52648; 71045; 80048; 80177; 81001; 85025; 85610 ×2; 85730; 87088; 93005; A4218; A4354; A4358; A4600; C1758; J0696; J1580; J2001; J2704; J3010 ×2; J3490 ×2; J7030; J7120

== ENCOUNTER → 2018-12-26 | Outpatient (CLI) | payer MEDICAID | END | disposition home or self-care (01) | LOC: RAH 13:44 | PROVIDERS: ATTEND Internal Medicine Critical Care Medicine | DX: S50.01XA Contusion of right elbow, initial encounter (principal); S80.811A Abrasion, right lower leg, initial encounter; X58.XXXA Exposure to other specified factors, initial encounter; Y93.89 Activity, other specified; Y92.89 Other specified places as the place of occurrence of the external cause; Y99.8 Other external cause status | CPT/HCPCS: 73070; 73560 ==

== ENCOUNTER 2019-02-04 12:42 | Emergency (ER) | payer MEDICAID ==
[2019-02-04 13:11] LABS: BASOPHILS % (AUTO) 0.4 % (0.0-5.0); EOSINOPHILS % (AUTO) 0.7 % (0.0-8.0); HEMATOCRIT 27.1 % (42-54); LYMPHOCYTES % (AUTO) 16.1 % (21.0-51.0); MEAN CORPUSCULAR HEMOGLOBIN 29.3 pg (27.0-33.0); MEAN CORPUSCULAR HGB CONC 34.3 g/dL (32.0-36.0); MEAN CORPUSCULAR VOLUME 85.6 fL (79-99); MONOCYTES % (AUTO) 7.5 % (3.0-13.0); NEUTROPHILS % (AUTO) 75.3 % (40.0-77.0); PLATELET COUNT (AUTO) 449 K/uL (130-400); RED BLOOD CELL COUNT(AUTO) 3.17 MIL/uL (4.50-6.20); RED CELL DISTRIBUTION WIDTH 15.6 % (11.0-15.5); WHITE BLOOD COUNT (AUTO) 7.9 K/uL (4.8-10.8)
[2019-02-04 13:16] LABS: APPEARANCE,URINE TURBID (CLEAR); BILIRUBIN,URINE NEGATIVE (NEGATIVE); COLOR,URINE YELLOW (YELLOW); GLUCOSE, URINE (UA) NEGATIVE (NEGATIVE); KETONES,URINE NEGATIVE (NEGATIVE); LEUKOCYTE ESTERASE ,URINE LARGE (NEGATIVE); NITRATE,URINE NEGATIVE (NEGATIVE); OCCULT BLOOD,URINE LARGE (NEGATIVE); PH,URINE 8.5 (5.0-8.0); PROTEIN,URINE >=300 mg/dL (NEGATIVE); UROBILINOGEN,URINE 0.2 mg/dL (0.2-1.0)
[2019-02-04 13:23] LABS: POTASSIUM 4.5 mmol/L (3.5-5.1)
[2019-02-04 13:28] LABS: ALBUMIN 2.9 g/dL (3.5-5.0); BILIRUBIN,TOTAL 0.3 mg/dL (0.2-1.0); TOTAL PROTEIN, SERUM 7.1 g/dL (6.0-8.3)
[2019-02-04] MEDS ORDERED: SODIUM CHLORIDE 0.9% 50 ML IV ONE (13:33)
[2019-02-04] MEDS ORDERED: CEFTRIAXONE SODIUM 1 GM ONE (13:34)
[2019-02-04 13:38] LABS: BACTERIA,URINE Many /HPF (None Seen); MUCUS,URINE Many LPF (None Seen); RBC,URINE >100 /HPF (0-1); SQUAMOUS EPITHELIAL CELL,UR 0-2 /HPF (0-2); WBC,URINE >100 /HPF (0-1)
[2019-02-04 13:39] LABS: AMORPHOUS SEDIMENT,UR Moderate /LPF (None Seen)
== END 2019-02-04 14:24 | disposition home or self-care (01) ==
LOC: EDH 12:42
DX: N30.00 Acute cystitis without hematuria (principal); I10 Essential (primary) hypertension; Z86.73 Personal history of transient ischemic attack (TIA), and cerebral infarction without residual deficits; Z87.891 Personal history of nicotine dependence
CPT/HCPCS: 36415; 80053; 81001; 85025; 87804 ×2; 96374; 99284; J0696

== ENCOUNTER 2019-03-16 15:46 | Emergency (ER) | payer MEDICAID ==
[2019-03-16 16:15] LABS: BASOPHILS % (AUTO) 1.2 % (0.0-5.0); EOSINOPHILS % (AUTO) 9.3 % (0.0-8.0); HEMATOCRIT 31.7 % (42-54); LYMPHOCYTES % (AUTO) 28.5 % (21.0-51.0); MEAN CORPUSCULAR HEMOGLOBIN 28.9 pg (27.0-33.0); MEAN CORPUSCULAR HGB CONC 33.4 g/dL (32.0-36.0); MEAN CORPUSCULAR VOLUME 86.5 fL (79-99); MONOCYTES % (AUTO) 5.2 % (3.0-13.0); NEUTROPHILS % (AUTO) 55.8 % (40.0-77.0); NUCLEATED RED BLOOD CELLS 0.1 % (0.0-0.19); PLATELET COUNT (AUTO) 192 K/uL (130-400); RED BLOOD CELL COUNT(AUTO) 3.66 MIL/uL (4.50-6.20); RED CELL DISTRIBUTION WIDTH 16.1 % (11.0-15.5); WHITE BLOOD COUNT (AUTO) 6.1 K/uL (4.8-10.8)
[2019-03-16] MEDS ORDERED: SODIUM CHLORIDE 0.9% 1000ML 1,000 ML IV ONE (16:22)
[2019-03-16 16:41] LABS: INR 1.21 (0.85-1.15); PARTIAL THROMBOPLASTIN TIME 27.1 SEC (26.3-35.5); PROTHROMBIN TIME 12.7 SEC (9.6-11.6)
[2019-03-16 16:42] LABS: CREATININE 1.5 mg/dL (0.5-1.5); POTASSIUM 4.1 mmol/L (3.5-5.1)
[2019-03-16 16:46] LABS: ALBUMIN 3.7 g/dL (3.5-5.0); BILIRUBIN,TOTAL 0.2 mg/dL (0.2-1.0)
[2019-03-16 18:11] LABS: APPEARANCE,URINE Clear (CLEAR); BILIRUBIN,URINE Negative (NEGATIVE); COLOR,URINE Yellow (YELLOW); GLUCOSE, URINE (UA) Negative (NEGATIVE); KETONES,URINE Negative (NEGATIVE); LEUKOCYTE ESTERASE ,URINE Trace (NEGATIVE); NITRATE,URINE Negative (NEGATIVE); OCCULT BLOOD,URINE Negative (NEGATIVE); PH,URINE 5.5 (5.0-8.0); PROTEIN,URINE POS 1+ mg/dL (NEGATIVE); UROBILINOGEN,URINE 0.2 mg/dL (0.2-1.0)
[2019-03-16 18:19] LABS: AMPHET/METH SCREEN,URINE NEGATIVE (NEGATIVE); BARBITURATE SCREEN, URINE NEGATIVE (NEGATIVE); BENZODIAZEPINES SCREEN,URINE NEGATIVE (NEGATIVE); CANNABINOID SCREEN,URINE NEGATIVE (NEGATIVE); COCAINE SCREEN,URINE NEGATIVE (NEGATIVE); OPIATE SCREEN,URINE NEGATIVE (NEGATIVE); PHENCYCLIDINE SCREEN,URINE NEGATIVE (NEGATIVE)
[2019-03-16 18:29] LABS: BACTERIA,URINE Few /HPF (None Seen); RBC,URINE None Seen /HPF (0-1); SQUAMOUS EPITHELIAL CELL,UR None Seen /HPF (0-2)
[2019-03-16 18:30] LABS: MUCUS,URINE Rare LPF (None Seen)
== END 2019-03-16 18:32 | disposition home or self-care (01) ==
LOC: EDH 15:46
DX: G40.802 Other epilepsy, not intractable, without status epilepticus (principal); R79.1 Abnormal coagulation profile; I10 Essential (primary) hypertension; Z86.73 Personal history of transient ischemic attack (TIA), and cerebral infarction without residual deficits
CPT/HCPCS: 36415; 70450; 71045; 80053; 80305; 81001; 82550; 83605; 84484; 85025; 85610; 85730; 93005; 99285; J7030

== ENCOUNTER → 2021-08-25 | Outpatient (CLI) | payer MEDICARE ==
[~2021-08-25] MED LIST changes: -FLUO-126 PO; +FLUO20CA36 PO; -LISI40TA4 PO; +LISI40TA9 PO; -MECL-111 PO; +MECL-160 PO
== END | disposition home or self-care (01) ==
LOC: SHCH 11:11
PROVIDERS: ATTEND Internal Medicine Cardiovascular Disease
DX: I42.9 Cardiomyopathy, unspecified (principal); I35.8 Other nonrheumatic aortic valve disorders; I11.9 Hypertensive heart disease without heart failure; E78.5 Hyperlipidemia, unspecified; E66.9 Obesity, unspecified
CPT/HCPCS: 93306; 93356

== ENCOUNTER → 2023-01-19 | Outpatient (CLI) | payer OTHER, MEDICARE | END | disposition home or self-care (01) | LOC: RAH 13:33 | PROVIDERS: ATTEND Internal Medicine Critical Care Medicine | DX: R22.41 Localized swelling, mass and lump, right lower limb (principal) | CPT/HCPCS: 93971 ==

== ENCOUNTER → 2023-05-11 | Outpatient (CLI) | payer OTHER, MEDICARE | END | disposition home or self-care (01) | LOC: SHCH 14:07 | PROVIDERS: ATTEND Internal Medicine Cardiovascular Disease | DX: I25.10 Atherosclerotic heart disease of native coronary artery without angina pectoris (principal); I35.8 Other nonrheumatic aortic valve disorders; I51.7 Cardiomegaly; I25.2 Old myocardial infarction | CPT/HCPCS: 93306 ==

== ENCOUNTER → 2023-06-01 | Outpatient (CLI) | payer OTHER, MEDICARE ==
[2023-06-01 16:16] LABS: BASOPHILS # (AUTO) 0.03 K/uL (0.00-0.20); BASOPHILS % (AUTO) 0.5 % (0.0-5.0); EOSINOPHILS # (AUTO) 0.26 K/uL (0.00-0.70); EOSINOPHILS % (AUTO) 4.1 % (0.0-8.0); HEMATOCRIT 41.6 % (42-54); IMMATURE GRANULOCYTE ABSOLUTE 0.01 K/uL (0-1); LYMPHOCYTES # (AUTO) 1.8 K/uL (1.0-4.8); LYMPHOCYTES % (AUTO) 28.4 % (21.0-51.0); MEAN CORPUSCULAR HEMOGLOBIN 29.2 pg (27.0-33.0); MEAN CORPUSCULAR HGB CONC 32.5 g/dL (32.0-36.0); MONOCYTES # (AUTO) 0.4 K/uL (0.1-1.0); NEUTROPHILS # (AUTO) 3.9 K/uL (1.8-7.7); NEUTROPHILS % (AUTO) 60.8 % (40.0-77.0); PLATELET COUNT (AUTO) 194 K/uL (130-400); RED BLOOD CELL COUNT(AUTO) 4.62 MIL/uL (4.50-6.20); RED CELL DISTRIBUTION WIDTH 14.4 % (11.0-15.5); WHITE BLOOD COUNT (AUTO) 6.4 K/uL (4.8-10.8)
[2023-06-01 16:44] LABS: ALBUMIN 3.9 g/dL (3.5-5.0); BILIRUBIN,TOTAL 0.5 mg/dL (0.2-1.0); CREATININE 1.2 mg/dL (0.5-1.5); POTASSIUM 4.8 mmol/L (3.5-5.1); TOTAL PROTEIN, SERUM 7.6 g/dL (6.0-8.3)
== END | disposition home or self-care (01) ==
LOC: LAB 11:32
PROVIDERS: ATTEND Internal Medicine Cardiovascular Disease
DX: I25.5 Ischemic cardiomyopathy (principal); E78.5 Hyperlipidemia, unspecified; I10 Essential (primary) hypertension
CPT/HCPCS: 36415; 80053; 80061; 85025

== ENCOUNTER → 2024-01-17 | Outpatient (CLI) | payer OTHER, MEDICARE ==
[~2024-01-17] MED LIST changes: +BUPIVACAINE/PF 0.5% 30ML VIAL ONE; +LIDOCAINE HCL 1% 20 ML VIAL ONE; -MECL-160 PO; +MECL-302 PO
[2024-01-17] MEDS: REGADENOSON 0.4 MG/5 ML PF SYG IVP ONE (13:18)
== END | disposition home or self-care (01) ==
LOC: SHCH 09:15
PROVIDERS: ATTEND Internal Medicine Cardiovascular Disease
DX: I25.5 Ischemic cardiomyopathy (principal); I25.10 Atherosclerotic heart disease of native coronary artery without angina pectoris
CPT/HCPCS: 78452; 96374; 93017; J2785; A9500 ×2; J0665

== ENCOUNTER 2025-05-30 06:02 | Day surgery (SDC) | payer OTHER, MEDICARE ==
[2025-05-28 12:41] LABS: IMMATURE GRANULOCYTE ABSOLUTE 0.02 K/uL (0-1); NUCLEATED RED BLOOD CELLS 0.0 % (0.0-0.19); PLATELET COUNT (AUTO) 197 K/uL (130-400); RED BLOOD CELL COUNT(AUTO) 4.67 MIL/uL (4.50-6.20); RED CELL DISTRIBUTION WIDTH 13.2 % (11.0-15.5); WHITE BLOOD COUNT (AUTO) 6.9 K/uL (4.8-10.8)
[2025-05-28 12:47] LABS: INR 1.13 (0.85-1.15)
[2025-05-28 12:49] LABS: CREATININE 1.2 mg/dL (0.5-1.3); GLOMERULAR FILTR. RATE CALC 66.0 mL/min (>90); GLUCOSE,RANDOM 112.0 mg/dL (70-105); SODIUM SERUM 137.0 mmol/L (136-145); UREA NITROGEN, BLOOD 27.0 mg/dL (7-18)
--- NOTE | 2025-05-28 12:52 | EKG ---
[facility] Test Date: 2025-05-28 Test Time: 12:22:24 Pat Name: KERI PICKETT Department: [facility] Room: Gender: M Tube Drawer: [id number] : 1960 Requested By: BECK MONTOYA Order Number: [id number] Reading MD: Chong Dodson Measurements Intervals [place] Rate: 47 P: -19 OR: 232 QRS: -44 QRSD: 91 T: 68 QT: 454 QTc: 402 Interpretive Statements Sinus bradycardia Prolonged OR interval Anterolateral infarct, old INFERIOR INFARCT, OLD Compared to ECG 03/16/2019 16:12:52 First degree AV block now present Sinus rhythm no longer present Left-axis deviation no longer present Left ventricular hypertrophy no longer present Early repolarization no longer present Myocardial infarct finding still present Electronically Signed On 05-29-2025 15:47:11 CDT by Chong Dodson Please click the below link to view image of tracing.
[2025-05-28 13:32] VITALS: BP 106/68; PULSE 50; RESP 17; TEMP 98
--- NOTE | 2025-05-29 05:35 | HMCIMG ---
EXAM: CR Chest, 1 views. CLINICAL HISTORY: Cough. COMPARISON: 03/16/2019 FINDINGS: The lungs show no infiltrate or other acute findings. No pleural effusion or pneumothorax. Mild cardiomegaly is noted. Atherosclerotic aortic calcification is noted. No acute osseous abnormality. IMPRESSION: No acute thoracic pathology. Mild cardiomegaly is noted. Atherosclerotic aortic calcification is noted. /[place]
[2025-05-30] VITALS (16 sets, daily range): BP systolic 95–141; BP diastolic 59–76; PULSE 43–59; RESP 14–18; TEMP 97.2–207.1
[~2025-05-30] VITALS: Ht 172.7 cm; Wt 95.3 kg
[~2025-05-30 06:02] MED LIST changes: +AMLO-258 PO; +APIX5TAB PO; -ASPI-1005 PO; -BUPIVACAINE/PF 0.5% 30ML VIAL ONE; +CARV6.25 PO; +ERGO500093 PO; +FLUO-418 PO; -FLUO20CA36 PO; -LIDOCAINE HCL 1% 20 ML VIAL ONE; -LISI40TA9 PO; -MECL-302 PO; +SACU1TAB7 PO; -WARF10TA23 PO
[2025-05-30] MEDS: 0.9%NACL 1000ML 1,000 ML IV ONE (06:55)
[2025-05-30] MEDS ORDERED: IOHEXOL 350 MG/ML 100ML INFUS..BTL IV ONE (07:13)
[2025-05-30] MEDS ORDERED: LIDOCAINE HCL 400MG/20ML VIAL ONE (07:13)
[2025-05-30] MEDS ORDERED: HEParin-NS 1,000 UNIT/500 ML 1,000 ML IV ONE (07:13)
[2025-05-30] MEDS ORDERED: NITROGLYCERIN 50MG VIAL ONE (07:13)
[2025-05-30] MEDS ORDERED: MIDAZOLAM HCL 1 MG/ML 2ML VIAL ONE (07:37)
[2025-05-30] MEDS ORDERED: IOHEXOL-350 50ML VIAL IV ONE ×2 (07:38→08:13)
[2025-05-30] MEDS ORDERED: ATROPINE 1MG SYG IVP ONE ×2 (07:58→09:51)
[2025-05-30] MEDS ORDERED: 0.9%NACL 1000ML 1,000 ML IV SCH (09:30)
--- NOTE | 2025-05-30 10:02 | PRN ---
DATE OF PROCEDURE: 05/30/2025 PROCEDURE PERFORMED: LEFT HEART CATHETERIZATION, LEFT VENTRICULOGRAM, RIGHT AND LEFT SELECTIVE CORONARY ANGIOGRAM, INJECTION OF LEFT SUBCLAVIAN TO ASSESS LAMAR GRAFT, RIGHT COMMON FEMORAL ANGIOGRAM, AND MANUAL COMPRESSION FOR HEMOSTASIS DOCKWORKER: Gordon Montoya MD, [facility] INDICATION: Abnormal stress test, fixed anterior apical and inferoapical defects with moderate septal ischemia. No clinical angina pectoris. PROCEDURE NOTE: After informed consent was obtained the patient was prepped and draped in the usual sterile fashion. A 6 Kisw[place]ili arterial sheath was inserted in the right femoral artery using ultrasound guidance and micropuncture technique. This was performed after fluoroscopic identification of bony landmarks to facilitate a more accurate puncture of the right common femoral artery. The arterial sheath was aspirated and flushed. A 6 K[place] pigtail catheter was then advanced over a J-tipped guidewire to the ascending aorta and was prolapsed into the left ventricle. The catheter was aspirated and flushed and pressure measurements were obtained. A left ventriculogram was then performed in a 30 ANGLIN projection. A pullback procedure was then performed, and this catheter was removed over a J-tipped guidewire. A 6F JL-4 was then advanced to the ascending aorta over a J-tipped guidewire, was aspirated and flushed, and was used for selective left coronary angiograms in multiple obliquities. A JR-4 was advanced in a similar fashion to the ascending aorta over a J-tipped guidewire and was used for selective right coronary angiograms in multiple obliquities with findings as outlined below. A right common femoral angiogram demonstrated a possible puncture of the profunda femoral artery, and manual compression was performed with a thrombin pad. There was no bleeding or hematoma. The patient tolerated the procedure well and was returned to the holding area in stable condition. FINDINGS: LEFT HEART HEMODYNAMICS: The patient's LVEDP was 6 mm of mercury prior to LV-gram in 11 mm of mercury after the LV-gram. LEFT VENTRICULOGRAM: A left ventriculogram in a 30 degree ANGLIN projection demonstrated severe anteroapical and inferoapical hypokinesis and limited apical dyskinesis. The LVEF estimate was 35-40%. There was no angiographic MR. CORONARY ANGIOGRAM: LEFT MAIN: The left main coronary was normal. There was no dampening or ventricularization of the pressure waveforms. LEFT ANTERIOR DESCENDING: The LAD was aneurysmal at the proximal segment with a 75% proximal stenosis, 75% stenosis after the bifurcation with the 1st diagonal, and 90% stenosis prior to the bifurcation of the 2nd diagonal. The distal LAD was normal. The 1st diagonal was large and had a 60% ostial stenosis and an 85% mid stenosis. LEFT CIRCUMFLEX: The left circumflex was dominant and had a 75% mid stenosis. The OM1 was large and healthy and extended to the apical lateral wall. The OM2 was small and had a 99% stenosis with an inferior ramification providing perfusion of the posterolateral wall. The left PDA was normal and small. RAMUS INTERMEDIATE BRANCH: There was no ramus intermediate branch. RIGHT CORONARY ARTERY: The right coronary artery was small and nondominant with an 80% proximal stenosis and an 80% stenosis in the acute marginal branch. The right coronary artery arose superiorly in the right coronary cusp and an AL1 was used for selective injection. IMPRESSION: Moderate ischemic cardiomyopathy with a anteroapical and inferoapical severe hypokinesis and limited apical dyskinesis. LVEF estimate 35-40%. No aortic stenosis. No mitral regurgitation. Severe three-vessel coronary artery disease, poorly suited to percutaneous co ronary intervention in the proximal LAD due to bifurcation involvement and aneurysmal dilatation followed by a large size change in the proximal LAD to mid LAD segments. Intervention to the ostial and proximal LAD could compromise the large diagonal branch. Asymptomatic clinical status. Fixed anteroapical and inferoapical defects with moderate septal ischemia only. RECOMMENDATION: Surgical opinion, with Cardiology favoring continued medical management given his asymptomatic status, prior CVA, hemiparesis, and wheelchair-bound status. COMPLICATIONS OF PROCEDURE: None, the patient tolerated the procedure well and was returned to his room in stable condition. HEMOSTASIS: Manual compression with thrombin pad successful without bleeding or hematoma. ESTIMATED BLOOD LOSS: 10 mL. CONTRAST TOTAL: 195 mL. GORDON MONTOYA MD May 30, 2025 10:02
== END 2025-05-30 15:40 | disposition home or self-care (01) ==
LOC: DAH 06:02
PROVIDERS: ATTEND Internal Medicine Cardiovascular Disease
DX: R94.39 Abnormal result of other cardiovascular function study (principal); I25.10 Atherosclerotic heart disease of native coronary artery without angina pectoris; I25.2 Old myocardial infarction; I44.0 Atrioventricular block, first degree; I10 Essential (primary) hypertension; E78.5 Hyperlipidemia, unspecified; I25.5 Ischemic cardiomyopathy; Z79.82 Long term (current) use of aspirin; Z79.01 Long term (current) use of anticoagulants; Z79.899 Other long term (current) drug therapy
CPT/HCPCS: 80048; 83880; 85025; 85610; 85730; 36415; 71045; 93005; 93458; 99157 ×5; 99156; C1894 ×2; J3010; J3490 ×2; J7030; J2250; J1644; Q9967 ×3; A4215; A4222; A4221; A4663; A4216; A4606; Q9965 ×2; A4223 ×3; 96360; 96361; J0461; J1250; J1265; J2371